=== PATIENT | female | born 2005 | race Caucasian/White ===

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

== ENCOUNTER 2024-01-01 22:46 | Observation (INO) | payer OTHER ==
[~2024-01-01] VITALS: Ht 175.3 cm; Wt 78.6 kg
[2024-01-01] MEDS ORDERED: Atropine/Scopalam/Hyoscam/PB 5 ML UDC PO ONE (23:00)
[2024-01-01] MEDS ORDERED: Mag Hydrox/AL Hydrox/Simeth 30 ML UDC PO ONE (23:00)
[2024-01-02] MEDS ORDERED: Ketorolac Tromethamine 30mg Vial IV ONE (02:10)
[2024-01-02 02:51] LABS: BASOPHILS ABSOLUTE AUTO 0.02 K/mm3 (0.00-0.23); BASOPHILS PERCENT AUTO 0 % (0-2); EOSINOPHILS ABSOLUTE AUTO 0.01 K/mm3 (0.00-0.68); EOSINOPHILS PERCENT AUTO 0 % (0-6); Hematocrit 42.5 % (33.0-51.0); Hemoglobin 14.4 g/dL (11.5-16.0); IMMATURE GRAN ABSOLUTE AUTO 0.04 K/mm3 (0.00-0.10); IMMATURE GRAN PERCENT AUTO 0 % (0-1); LYMPHOCYTES ABSOLUTE AUTO 1.17 K/mm3 (0.84-5.20); LYMPHOCYTES PERCENT AUTO 9 % (21-46); MONOCYTES ABSOLUTE AUTO 0.72 K/mm3 (0.16-1.47); MONOCYTES PERCENT AUTO 6 % (4-13); Mean Corpuscular HGB 29.5 pg (26.0-34.0); Mean Corpuscular HGB Conc 33.9 g/dL (31.5-36.5); Mean Corpuscular Volume 87 fL (80-100); Mean Platelet Volume 10.6 fL (9.1-12.4); NEUTROPHILS ABSOLUTE AUTO 10.43 K/mm3 (1.96-9.15); NEUTROPHILS PERCENT AUTO 84 % (41-73); Platelet Count 250 K/mm3 (150-400); RDW Coefficient Variation 12.8 % (11.7-14.2); RDW Standard Deviation 40.6 fL (35.1-46.3); Red Blood Cell Count 4.88 M/mm3 (3.80-5.20); White Blood Cell Count 12.39 K/mm3 (4.00-11.30)
[2024-01-02 03:13] LABS: Albumin, Blood 4.2 g/dL (3.4-5.0); Albumin/Globulin Ratio 1.2 (0.8-1.8); Bilirubin, Total 1.2 mg/dL (0.1-1.0); Bun/Creatinine Ratio 21.1 (12.0-20.0); Creatinine, Blood 0.76 mg/dL (0.40-1.00); Globulin, Blood 3.6 g/dL (2.2-4.0); Total Protein, Blood 7.8 g/dL (6.4-8.2)
[2024-01-02] MEDS ORDERED: MetroNIDAZOLE 500MG/NS 100 ml 100 ML IV ONE (04:15)
[2024-01-02] MEDS ORDERED: NS 1,000 ML IV SCH ×2 (04:15→12:20)
[2024-01-02] MEDS ORDERED: Lactated Ringer's 1,000 ML IV SCH (04:15)
[2024-01-02] MEDS ORDERED: CefTRIAXone Sodium 1,000 MG in NS 50 ML IV ONE (04:15)
[2024-01-02 05:18] VITALS: BP 107/57
--- NOTE | 2024-01-02 06:18 | NUR ---
ARRIVAL TO UNIT/SHIFT SUMMARY PT ARRIVED TO UNIT AT APPROX 0515, VIA GURENY FROM ER. PT ABLE TO AMB TO BATHROOM AND BACK TO THE BED. PT'S IV BECAME VERY PAINFUL AND NEEDED TAKEN OUT, NEW ONE PLACED. IV FLUIDS RUNNING AT THIS TIME, ABX RUNNING PER EMAR. PT HAS BEEN NPO FOR POSSIBLE SURGERY TODAY. VSS. NO OTHER CONCERNS AT THIS TIME, CALL LIGHT WITHIN REACH
[2024-01-02 07:16] VITALS: BP 115/81
[2024-01-02] MEDS ORDERED: Ondansetron HCl 2 MG / ML 2ML Vial IV PRN (08:55)
[2024-01-02] MEDS ORDERED: HYDROcodone 5-APAP 325 TAB PO PRN (08:55)
[2024-01-02] MEDS ORDERED: FentaNYL Citrate 50 MCG/ML 2 ML Injection IV PRN (08:55)
[2024-01-02] MEDS ORDERED: CeFAZolin Sodium 2,000 MG in NS 100 ML IV SCH (09:00)
[2024-01-02] MEDS ORDERED: Pantoprazole Sodium 40 MG Injection IV ONE (14:00)
[2024-01-02] MEDS ORDERED: propofoL 20 ML IV ONE (14:39)
[2024-01-02] MEDS ORDERED: FentaNYL Citrate 50 MCG/ML 2 ML Injection ONE (14:39)
[2024-01-02 15:01] VITALS: BP 125/68
[2024-01-02] MEDS ORDERED: Lactated Ringer's 1,000 ML IV ONE (16:23)
--- NOTE | 2024-01-02 19:13 | NUR ---
SHIFT SUMMARY PT HAS REMAINED NPO T/O SHIFT. PLAN WAS INITIALLY TO HAVE SURGERY TODAY FOR ANDREINA, BUMPED AT THIS TIME. PLAN IS FOR PATIENT TO BE NPO AT 0400 FOR SURGERY IN THE MORNING. CLEAR LIQUIDS AT THIS TIME. PT AGREEABLE.
[2024-01-02 20:21] VITALS: BP 120/88
[2024-01-03] VITALS (10 sets, daily range): BP systolic 109–129; BP diastolic 66–89
--- NOTE | 2024-01-03 03:37 | NUR ---
PATIENT REQUEST PT REQUESTED NOT TO BE ROUNDED ON FOR THE REST OF PM SHIFT, HER SURGERY IS EARLY TODAY. PARTNER AT BEDSIDE, PT EDUCATED THAT SHE MUST BE NPO AT 0400 OR THAT HER SURGERY WILL NOT HAPPEN. PT VERBALIZED UNDERSTANDING.
--- NOTE | 2024-01-03 04:45 | NUR ---
SHIFT SUMMARY VSS, PT HAS SLEPT LITTLE T/O THE NIGHT. PT TOOK MULTIPLE WALKS T/O THE NIGHT AND SHOWERED. PT ASKED FOR LABS TO BE PUSHED OUT UNTIL DAY SHIFT AND REQUESTED NOT TO BE ROUNDED ON. PLEASE SEE PREVIOUS RN NOTE. DENIES ANY N/V T/O THE NIGHT, TOLLERATED CLEAR LIQUIDS. BECAME NPO AT 0400. PT REPORTED SHE WOULD PERFORM HER SURGICAL WIPEDOWN IN THE BATHROOM THIS AM. PT DID NOT GISSELL ANY MEDICATION T/O THE NIGHT. UNABLE TO TOTAL I/O'S D/T MANY VISITORS AND CUPS T/O THE NIGHT. OVERALL NO ACUTE EVENTS NOTED, PLAN TO GO TO OR TODAY.
[2024-01-03] MEDS ORDERED: FentaNYL Citrate 50 MCG/ML 2 ML Injection ONE ×2 (07:53→08:32)
[2024-01-03] MEDS ORDERED: Ondansetron HCl 2 MG / ML 2ML Vial ONE ×2 (07:53→08:20)
[2024-01-03] MEDS ORDERED: Rocuronium Bromide 10 MG/ML 5ML Injection IV ONE (07:53)
[2024-01-03] MEDS ORDERED: Dexamethasone Sod Phos 10 MG/ML 1ML VIAL ONE ×2 (07:53→08:20)
[2024-01-03] MEDS ORDERED: propofoL 0 ML IV ONE (07:53)
[2024-01-03] MEDS ORDERED: Midazolam HCl 1MG / ML 2ML Vial ONE (07:54)
[2024-01-03] MEDS ORDERED: Ketorolac Tromethamine 30mg Vial ONE (08:20)
[2024-01-03] MEDS ORDERED: CeFAZolin Sodium 1000 mg Vial ONE (08:21)
[2024-01-03] MEDS ORDERED: Bupivacaine 0.5% Inj 50 ML Vial ONE (08:25)
[2024-01-03] MEDS ORDERED: Sugammadex Sodium 200 MG/2ML SDV (100 MG/ML) ONE (08:41)
[2024-01-03] MEDS ORDERED: NS 1,000 ML IV SCH (09:40)
[2024-01-03] MEDS ORDERED: HYDR1TAB94 PO (10:02)
--- NOTE | 2024-01-03 10:25 | NUR ---
ARRIVAL PT ARRIVED FROM PACU VIA GURNEY, TRANSFERED TO BED ON HER OWN. DENIES PAIN OR NAUSEA AND REPORTS WANTING TO SLEEP AT THIS TIME. LAP SITES REMAIN CDI WITH JESUSI PAULETTE, SPOUSE AT BEDSIDE. PT CURRENTLY RESTING AND WILL CALL IF PAIN BEGINS TO CLIMB.
--- NOTE | 2024-01-03 18:51 | NUR ---
discharge s/p lap windy pt [id number], pain controlled with po medications, precription given to significant other at bedside prior to discharging. all belongings with patient. tolerating diet well. no nausea. ambulating well.
== END 2024-01-03 18:56 | disposition home or self-care (01) ==
LOC: ER 22:46 → SURS 22:47
PROVIDERS: Student in an Organized Health Care Education/Training Program; ADMIT Surgery
PROC: 0FT44ZZ Resection of Gallbladder, Percutaneous Endoscopic Approach (ICD-10-PCS; principal; 2024-01-03 08:00)
DX: K80.12 Calculus of gallbladder with acute and chronic cholecystitis without obstruction (principal); D36.0 Benign neoplasm of lymph nodes; Z87.891 Personal history of nicotine dependence
CPT/HCPCS: 74300; 76705; 80053; 83690; 84703; 85025; 88304; 96365; 96367; 96375; 99285-25; A9270; C9113; G0378; J0690; J0696; J1100; J1885; J2250; J2405; J2704; J3010; J7030; J7120

== ENCOUNTER → 2024-02-12 | Outpatient (CLI) | payer OTHER ==
[~2024-02-12] MED LIST changes: +HYDR1TAB94 PO
[2024-02-12 17:40] LABS: Source, Urine Clean Catch
[2024-02-12 18:03] LABS: Appearance, Urine Clear (Clear); Bilirubin, Urine Neg (Neg); Blood, Urine Neg (Neg); Color, Urine Yellow (P-Yellow); Glucose Qualitative, Urine Neg (Neg); Ketones, Urine Neg (Neg); Leukocyte Esterase, Urine Neg (Neg); Nitrite, Urine Neg (Neg); Protein, Urine Neg (Neg); Urobilinogen, Urine NORM (Normal)
[2024-02-12 18:49] LABS: BASOPHILS ABSOLUTE AUTO 0.03 K/mm3 (0.00-0.23); BASOPHILS PERCENT AUTO 0 % (0-2); EOSINOPHILS ABSOLUTE AUTO 0.01 K/mm3 (0.00-0.68); EOSINOPHILS PERCENT AUTO 0 % (0-6); Hematocrit 41.5 % (33.0-51.0); Hemoglobin 13.6 g/dL (11.5-16.0); IMMATURE GRAN ABSOLUTE AUTO 0.04 K/mm3 (0.00-0.10); IMMATURE GRAN PERCENT AUTO 0 % (0-1); LYMPHOCYTES ABSOLUTE AUTO 1.72 K/mm3 (0.84-5.20); LYMPHOCYTES PERCENT AUTO 17 % (21-46); MONOCYTES ABSOLUTE AUTO 0.42 K/mm3 (0.16-1.47); MONOCYTES PERCENT AUTO 4 % (4-13); Mean Corpuscular HGB 29.2 pg (26.0-34.0); Mean Corpuscular HGB Conc 32.8 g/dL (31.5-36.5); Mean Corpuscular Volume 89 fL (80-100); Mean Platelet Volume 11.1 fL (9.1-12.4); NEUTROPHILS ABSOLUTE AUTO 7.84 K/mm3 (1.96-9.15); NEUTROPHILS PERCENT AUTO 78 % (41-73); Platelet Count 283 K/mm3 (150-400); RDW Coefficient Variation 12.6 % (11.7-14.2); Red Blood Cell Count 4.66 M/mm3 (3.80-5.20); White Blood Cell Count 10.06 K/mm3 (4.00-11.30)
[2024-02-15 10:43] LABS: HEPATITIS B SURFACE ANTIGEN Negative (Negative)
[2024-02-15 11:05] LABS: HEPATITIS C AB CIA INTERP Negative (Negative); HEPATITIS C ANTIBODY CIA INDEX 0.04 IV
[2024-02-15 11:25] LABS: HIV 1,2 COMBO ANTIGEN/ANTIBODY Negative (Negative)
== END ==
LOC: LAB 15:54 → LAB SHORT 15:54
PROVIDERS: Registered Nurse Community Health
DX: Z34.91 Encounter for supervision of normal pregnancy, unspecified, first trimester (principal)
CPT/HCPCS: 81003; 84443; 86803; 87086; 87340; 87389

== ENCOUNTER 2024-06-30 07:39 | Inpatient (IN) | payer OTHER ==
[~2024-06-30] VITALS: Ht 175.3 cm; Wt 75.3 kg
[2024-06-30] VITALS (27 sets, daily range): BP systolic 105–131; BP diastolic 49–78
[2024-06-30] MEDS ORDERED: Carboprost Tromethamine 250 MCG/ML 1ML Amp IM PRN (08:00)
[2024-06-30] MEDS ORDERED: OXYTOCIN/RINGER'S LACTATE 500 ML IV PRN (08:00)
[2024-06-30] MEDS ORDERED: Oxytocin 10 Unit / ML Vial IM PRN (08:00)
[2024-06-30] MEDS ORDERED: Lactated Ringer's 1,000 ML IV PRN (08:00)
[2024-06-30] MEDS ORDERED: Ondansetron HCl 2 MG / ML 2ML Vial IV PRN (08:00)
[2024-06-30] MEDS ORDERED: Misoprostol 200 MCG Tab PR PRN ×2 (08:00→14:00)
[2024-06-30] MEDS ORDERED: Misoprostol 200 MCG Tab BC PRN (08:00)
[2024-06-30] MEDS ORDERED: Misoprostol 25 MCG Tab VAG PRN (08:00)
[2024-06-30] MEDS ORDERED: Acetaminophen 500 MG Tab PO PRN (08:00)
[2024-06-30] MEDS ORDERED: FentaNYL Citrate 50 MCG/ML 2 ML Injection IV PRN (08:00)
[2024-06-30] MEDS ORDERED: Methylergonovine Maleate 0.2MG / ML 1ML Amp IM PRN ×2 (08:00→13:55)
[2024-06-30] MEDS ORDERED: Lactated Ringer's 1,000 ML IV SCH ×4 (08:00→13:55)
[2024-06-30] MEDS ORDERED: Calcium Carbonate 500 MG Tab Chew PO PRN (08:05)
[2024-06-30] MEDS ORDERED: Tranexamic Acid 1,000 MG in NS 100 ML IV SCH (08:15)
[2024-06-30] MEDS ORDERED: Misoprostol 200 MCG Tab VAG PRN (08:25)
[2024-06-30 08:57] LABS: BASOPHILS ABSOLUTE AUTO 0.02 K/mm3 (0.00-0.23); BASOPHILS PERCENT AUTO 0 % (0-2); EOSINOPHILS ABSOLUTE AUTO 0.04 K/mm3 (0.00-0.68); EOSINOPHILS PERCENT AUTO 0 % (0-6); Hematocrit 30.5 % (33.0-51.0); IMMATURE GRAN ABSOLUTE AUTO 0.08 K/mm3 (0.00-0.10); IMMATURE GRAN PERCENT AUTO 1 % (0-1); LYMPHOCYTES ABSOLUTE AUTO 2.09 K/mm3 (0.84-5.20); LYMPHOCYTES PERCENT AUTO 19 % (21-46); MONOCYTES ABSOLUTE AUTO 0.75 K/mm3 (0.16-1.47); MONOCYTES PERCENT AUTO 7 % (4-13); Mean Corpuscular HGB 28.5 pg (26.0-34.0); Mean Corpuscular HGB Conc 32.8 g/dL (31.5-36.5); Mean Corpuscular Volume 87 fL (80-100); Mean Platelet Volume 10.9 fL (9.1-12.4); NEUTROPHILS ABSOLUTE AUTO 7.88 K/mm3 (1.96-9.15); NEUTROPHILS PERCENT AUTO 73 % (41-73); Platelet Count 185 K/mm3 (150-400); RDW Coefficient Variation 13.8 % (11.7-14.2); RDW Standard Deviation 42.9 fL (35.1-46.3); Red Blood Cell Count 3.51 M/mm3 (3.80-5.20); White Blood Cell Count 10.86 K/mm3 (4.00-11.30)
[2024-06-30] MEDS ORDERED: ePHEDrine Sulfate 50 MG/ML 1ML Injection XX PRN (12:55)
[2024-06-30] MEDS ORDERED: FentaNYL 2mcg/ml-Bup 0.1% Epd 250 ML EPI PRN (12:55)
[2024-06-30] MEDS ORDERED: Witch Hazel/Glycerin PADS TOP PRN (13:55)
[2024-06-30] MEDS ORDERED: Measles/Mumps/Rubella Vaccine 0.5 ML Vial SC SCH (13:55)
[2024-06-30] MEDS ORDERED: Zolpidem Tartrate 5 MG Tab PO PRN (13:55)
[2024-06-30] MEDS ORDERED: OXYTOCIN/RINGER'S LACTATE 500 ML IV SCH (13:55)
[2024-06-30] MEDS ORDERED: Diphth,Pertuss(Acell),Tet Vac 0.5 ML VIAL IM SCH (14:00)
[2024-06-30] MEDS ORDERED: Benzocaine Topical Anesthetic Spray 60GM TOP PRN (14:00)
[2024-06-30] MEDS ORDERED: Docusate Sodium 100 MG Cap PO PRN (14:00)
[2024-06-30] MEDS ORDERED: FLU VACC TS2024-25(6MOS UP)/PF 45 MCG/0.5 ML SYRINGE IM SCH (14:00)
[2024-06-30] MEDS ORDERED: Ketorolac Tromethamine 30mg Vial IV PRN (14:00)
[2024-06-30] MEDS ORDERED: Ibuprofen 400 MG Tab PO PRN (14:00)
[2024-06-30] MEDS ORDERED: Oxytocin 10 Unit / ML Vial IM ONE (14:00)
[2024-06-30] MEDS ORDERED: Acetaminophen/Codeine 300-30 mg PO PRN (14:05)
[2024-06-30] MEDS ORDERED: Acetaminophen 325 MG TABLET PO PRN (14:05)
--- NOTE | 2024-06-30 16:00 | NUR ---
millie cot to room per pt request. declines [facility] and jermain, may choose to have jermain to come in the morning, she a reports she is going to start going back to therapy facesheet to ke[facility] fonseca
--- NOTE | 2024-06-30 18:29 | NUR ---
REPORTS DOING WELL, BABY IN CUDDLE COT, MOM SNUGGLING WITH BEAR IN BED
[2024-07-01 04:13] VITALS: BP 113/57
[2024-07-01 06:14] LABS: Hematocrit 36.9 % (33.0-51.0); Mean Corpuscular HGB 28.4 pg (26.0-34.0); Mean Corpuscular HGB Conc 32.5 g/dL (31.5-36.5); Mean Corpuscular Volume 87 fL (80-100); Platelet Count 202 K/mm3 (150-400); RDW Coefficient Variation 13.5 % (11.7-14.2); RDW Standard Deviation 42.8 fL (35.1-46.3); Red Blood Cell Count 4.23 M/mm3 (3.80-5.20); White Blood Cell Count 13.76 K/mm3 (4.00-11.30)
[2024-07-01] MEDS ORDERED: Prenatal Vit/FE Fumarate/FA 1 Tab PO SCH (09:00)
--- NOTE | 2024-07-01 09:50 | NUR ---
pt has been sleeping all morning, was up late last night. mart cnm to be in by noon to see pt
[2024-07-01 10:17] VITALS: BP 101/66
--- NOTE | 2024-07-01 10:45 | NUR ---
MOM HAS CHOOSEN [facility] IN [place], GAVE MOM ALL BABY MOMENTOS, MOLDS, NECKLACES, HAND AND FOOT PRINTS, HAT, IN A PHOTO BOX, PPD SCORE IS 3, WILLCONSULT WITH VASHTI CHOW WHEN SHE COMES PT IS PLANNING TO CONTINUE WITH HER THERAPIST FOR COUNSELING FOR HER BREVEMENT. IS COMING BACK TO [facility] THURSDAY FOR PPFU APPT AT 1030.
--- NOTE | 2024-07-01 14:05 | NUR ---
dc home, has appt with [facility] made by joyce marinelli. baby to go [facility]. has all baby stuff, took baby cloths and hat she was wearing, tomas is to call kia gilbert the grandma at [phone], pt doesnt currently have a phone that is working
== END 2024-07-01 13:58 | disposition home or self-care (01) | DRG 807 ==
LOC: BC 07:39
PROVIDERS: ADMIT Registered Nurse Community Health
PROC: 10E0XZZ Delivery of Products of Conception, External Approach (ICD-10-PCS; principal; 2024-06-30)
PROC: 10907ZC Drainage of Amniotic Fluid, Therapeutic from Products of Conception, Via Natural or Artificial Opening (ICD-10-PCS; 2024-06-30)
DX: O36.4XX0 Maternal care for intrauterine death, not applicable or unspecified (principal); Z37.9 Outcome of delivery, unspecified; Z3A.26 26 weeks gestation of pregnancy; D18.1 Lymphangioma, any site; Z90.49 Acquired absence of other specified parts of digestive tract; Z79.899 Other long term (current) drug therapy; K21.9 Gastro-esophageal reflux disease without esophagitis; O99.344 Other mental disorders complicating childbirth; F32.A Depression, unspecified
CPT/HCPCS: 36415; 85025; 85027; 86850; 86900; 86901; A9270; J3010; J7120

== ENCOUNTER 2025-01-12 18:15 | Emergency (ER) | payer OTHER ==
[~2025-01-12] VITALS: Ht 175.3 cm; Wt 68.0 kg
[2025-01-12 18:38] VITALS: BP 118/77
== END 2025-01-12 20:35 | disposition home or self-care (01) ==
LOC: ER 18:15
DX: R07.9 Chest pain, unspecified (principal); F17.200 Nicotine dependence, unspecified, uncomplicated
CPT/HCPCS: 71046; 93005; 93010; 99285-25

== ENCOUNTER → 2025-02-27 | Outpatient (CLI) | payer OTHER | LOC: LAB SHORT 10:24 → LAB 10:24 | DX: N39.0 Urinary tract infection, site not specified (principal) | CPT/HCPCS: 87077; 87086; 87186 ==